=== PATIENT | male | born 1985 | race Caucasian/White ===

== ENCOUNTER 2019-06-24 11:25 | Inpatient (IN) | payer OTHER ==
[2019-06-24] MEDS ORDERED: Heparin Sodium 5,000 Units/ML Vial IV ONE (12:30)
[2019-06-24] MEDS: Lisinopril 5 MG Tab PO SCH (13:22)
--- NOTE | 2019-06-24 13:26 | PCM.HP.2 ---
H&P History of Present Illness - General Date of Service: 06/24/19 Admit Problem/Dx: Admission Diagnosis/Problem Admission Diagnosis/Problem Pulmonary embolism Source of Information: Patient History Limitations: Reports: No Limitations - History of Present Illness Initial Comments - Free Text/Narative: Mr. Dunham is a 34 yo male with PMH of DM, HTN, and known right lower extremity DVT who was seen in clinic today and did endorse 24 hours of dyspnea on exertion. He was diagnosed with the right leg DVT after presenting to clinic to establish care and also noting that he was having right leg pain and swelling. At that time, he was diagnosed with a DVT and was started on lovenox bridging to warfarin (after he made this choice upon review of the options to include a DOAC). He had been taking the warfarin consistently up until this past weekend when he missed 2-3 doses due to forgetting his medications while away from home ; however, he had not gone in for an INR check since about 1 month ago. Since missing these doses, he has again noticed increased pain and swelling in the right leg. He has also noticed dyspnea on exertion over the past 24 hours. He mainly has noticed this when going up stairs. He does not generally have shortness of breath but does note that he had this about 1 month ago when he was first diagnosed with the DVT as well. He has not had any cough or fever. He denies any chest pain. He has not done anything specifically to treat these symptoms. - Related Data Allergies/Adverse Reactions: Allergies Allergy/AdvReac Type Severity Reaction Status Date / Time No Known Allergies Allergy Verified 05/23/19 19:11 Home Medications: Home Meds Lisinopril [Zestril] 5 mg PO DAILY 06/24/19 [History] Warfarin [Coumadin] 5 mg PO DAILY 06/24/19 [History] atorvaSTATin [Lipitor] 10 mg PO BEDTIME 06/24/19 [History] glipiZIDE [Glucotrol] 5 mg PO BID 06/24/19 [History] metFORMIN [Glucophage XR] 500 mg PO BID 06/24/19 [History] Past Medical History - Past Health History Medical/Surgical History: Denies Medical/Surgical History Cardiovascular History: Reports: Hypertension Other Cardiovascular History: DVT Respiratory History: Reports: PE Endocrine/Metabolic History: Reports: Diabetes, Type II Social & Family History - Family History Endocrine/Metabolic: Reports: Diabetes, type II - Tobacco Use Smoking Status *Q: Never Smoker - Caffeine Use Caffeine Use: Reports: Coffee, Soda - Alcohol Use Alcohol Use History: No Alcohol Use in Last Twelve Months: Yes Alcohol Use Frequency: Rarely - Recreational Drug Use Recreational Drug Use: No - Living Situation & Occupation Living situation: Reports: , with Family Occupation: Employed (works at [employer]) H&P Review of Systems - Review of Systems: Review Of Systems: See Below General: Reports: No Symptoms HEENT: Reports: No Symptoms Pulmonary: Reports: No Symptoms Cardiovascular: Reports: Dyspnea on Exertion, Edema (right leg). Denies: Chest Pain Gastrointestinal: Reports: No Symptoms Genitourinary: Reports: No Symptoms Musculoskeletal: Reports: Leg Pain Skin: Reports: No Symptoms Psychiatric: Reports: No Symptoms Neurological: Reports: No Symptoms Exam - Exam Exam: See Below - Vital Signs Vital Signs: Last Vital Signs Temp 37.0 C 06/24/19 12:03 Pulse 102 H 06/24/19 12:03 Resp 16 06/24/19 12:03 BP 157/116 H 06/24/19 12:03 Pulse Ox 100 06/24/19 12:03 Weight: 106.141 kg - Exam General: Alert, Oriented, Cooperative HEENT: Conjunctiva Clear, Mucosa Moist & [place], Posterior Pharynx Clear, Pupils Equal, Pupils Reactive Neck: Supple, Trachea Midline Lungs: Clear to Auscultation, Normal Respiratory Effort Cardiovascular: Regular Rate, Regular Rhythm, Normal S1, Normal S2 GI/Abdominal Exam: Normal Bowel Sounds, Soft, Non-Tender, No Organomegaly, No Distention, No Mass Extremities: Normal Inspection, Normal Capillary Refill, Other (generalized edema of the right leg with tenderness over the medial thigh; no erythema or palpable cord) Peripheral Pulses: 2+: Radial (L), Radial (R) Skin: Warm, Dry, Intact - Patient Data Result Diagrams: 06/24/19 12:42 06/24/19 12:42 Sepsis Event Note - Evaluation Sepsis Screening Result: No Definite Risk - Focused Exam Vital Signs: Vital Signs Temp Pulse Resp BP Pulse Ox 06/24/19 12:03 37.0 C 102 H 16 157/116 H 100 Date Exam was Performed: 06/24/19 Time Exam was Performed: 13:55 - Problem List (1) Pulmonary emboli SNOMED Code(s): 22155021 ICD Code: I26.99 - OTHER PULMONARY EMBOLISM WITHOUT ACUTE COR PULMONALE Status: Acute Current Visit: Yes Qualifiers: Pulmonary embolism type: other Chronicity: acute Acute cor pulmonale presence: without acute cor pulmonale Qualified Code(s): I26.99 - Other pulmonary embolism without acute cor pulmonale (2) DVT (deep venous thrombosis) SNOMED Code(s): 341387685 ICD Code: I82.409 - ACUTE EMBOLISM AND THOMBOS UNSP DEEP VN UNSP LOWER EXTREMITY Status: Acute Current Visit: Yes Qualifiers: DVT location: lower extremity Affected thrombotic vein of extremity: unspecified vein of extremity Chronicity: acute Laterality: right Qualified Code(s): I82.401 - Acute embolism and thrombosis of unspecified deep veins of right lower extremity (3) Diabetes SNOMED Code(s): 99477140 ICD Code: E11.9 - TYPE 2 DIABETES MELLITUS WITHOUT COMPLICATIONS Status: Chronic Current Visit: Yes Qualifiers: Diabetes mellitus type: type 2 Diabetes mellitus intermediate teacher insulin use: without intermediate teacher use Diabetes mellitus complication status: without complication Qualified Code(s): E11.9 - Type 2 diabetes mellitus without complications (4) Hypertension SNOMED Code(s): 30848559 ICD Code: I10 - ESSENTIAL (PRIMARY) HYPERTENSION Status: Chronic Current Visit: Yes Qualifiers: Hypertension type: essential hypertension Qualified Code(s): I10 - Essential (primary) hypertension Problem List Initiated/Reviewed/Updated: Yes Orders Last 24hrs: Active Orders 24 hr Category Date Time Status Admission Status [Patient Status] [ADT] Routine ADT 06/24/19 11:27 Active Notify Provider Vital Signs [RC] ASDIRECTED Care 06/24/19 12:10 Ordered Oxygen Therapy [RC] PRN Care 06/24/19 12:09 Ordered Up to Chair [RC] ASDIRECTED Care 06/24/19 12:09 Ordered VTE/DVT Education [RC] PER UNIT ROUTINE Care 06/24/19 12:09 Ordered BASIC METABOLIC PANEL,BMP [CHEM] Routine Lab 06/24/19 12:09 Ordered CBC WITH AUTO DIFF [HEME] Routine Lab 06/24/19 12:09 Ordered PTT,PARTIAL THROMBOPLSTIN TIME [COAG] Q6H Lab 06/24/19 18:00 Ordered PTT,PARTIAL THROMBOPLSTIN TIME [COAG] Q6H Lab 06/25/19 00:00 Ordered PTT,PARTIAL THROMBOPLSTIN TIME [COAG] Q6 Lab 06/25/19 06:00 Ordered PTT,PARTIAL THROMBOPLSTIN TIME [COAG] Q6 Lab 06/25/19 12:00 Ordered PTT,PARTIAL THROMBOPLSTIN TIME [COAG] Q6 Lab 06/25/19 18:00 Ordered PTT,PARTIAL THROMBOPLSTIN TIME [COAG] Q6 Lab 06/26/19 00:00 Ordered PTT,PARTIAL THROMBOPLSTIN TIME [COAG] Q6 Lab 06/26/19 06:00 Ordered PTT,PARTIAL THROMBOPLSTIN TIME [COAG] Q6 Lab 06/26/19 12:00 Ordered PTT,PARTIAL THROMBOPLSTIN TIME [COAG] Q6 Lab 06/26/19 18:00 Ordered PTT,PARTIAL THROMBOPLSTIN TIME [COAG] Q6 Lab 06/27/19 00:00 Ordered PTT,PARTIAL THROMBOPLSTIN TIME [COAG] Q6 Lab 06/27/19 06:00 Ordered PTT,PARTIAL THROMBOPLSTIN TIME [COAG] Q6 Lab 06/27/19 12:00 Ordered PTT,PARTIAL THROMBOPLSTIN TIME [COAG] Routine Lab 06/24/19 12:09 Ordered Heparin Sodium Med 06/24/19 12:35 Active 0 units IVPUSH ASDIRECTED PRN Heparin Sodium/0.45% NaCl [Heparin 25,000 Units in 1/2 Med 06/24/19 12:15 Ordered NS 500 ML] 25,000 units in 500 ml IV TITRATE Warfarin [Coumadin] Med 06/24/19 20:00 Ordered 5 mg PO BEDTIME atorvaSTATin [Lipitor] Med 06/24/19 20:00 Ordered 10 mg PO BEDTIME glipiZIDE [Glucotrol] Med 06/24/19 20:00 Ordered 5 mg PO BID lisinopriL [Prinivil] Med 06/24/19 12:15 Ordered 5 mg PO DAILY Resuscitation Status Routine Resus Stat 06/24/19 12:09 Ordered Medication Orders Atorvastatin Calcium (Lipitor) 10 mg PO BEDTIME [facility] Glipizide (Glucotrol) 5 mg PO BID [facility] Heparin Sodium (Porcine) (Heparin Sodium) 0 units IVPUSH ASDIRECTED PRN PRN Reason: BASED ON PTT'S (SEE PROTOCOL) Heparin Sodium/Sodium Chloride (Heparin 25,000 Units In 1/2 Ns 500 Ml) 25,000 units in 500 mls @ 26 mls/hr IV TITRATE [facility]; Protocol Lisinopril (Prinivil) 5 mg PO DAILY [facility] Warfarin Sodium (Coumadin) 5 mg PO BEDTIME [facility] Assessment/Plan Comment:: 34 yo male admitted for anticoagulation related to a PE in the setting of a known DVT diagnosed 1 month ago as well as nonadherence to INR checks. #1 PE #2 DVT - Given patient's nonadherence to prior anticoagulation plan as well as the extensive nature of his PE, admission was recommended over outpatient treatment. He was in agreement. - Heparin drip ordered to be adjusted per nursing protocol. - Will also continue warfarin. - Recheck INR tomorrow. - aPTT q6 hours to assist with adjustment of the heparin drip. - Will recommend at least 48 hours of IV anticoagulation but ideally would await 2 therapeutic INR's prior to transitioning. - Will revisit options for anticoagulation. If he continues with warfarin, then the importance of regular follow-up will be re-emphasized. #3 DM, type II - Patient is on oral medications only. - Hold metformin while hospitalized. Continue glipizide. - Will bolus 500 cc normal saline in light of contrast administration this morning and intermediate teacher metformin use. - Glucose checks with am labs. #4 Hypertension - BP elevated in clinic and upon hospital arrival. - Will give 2nd dose of 5 mg lisinopril today and then increase daily dose to 10 mg daily. Patient is admitted to acute for at least 48 hours of IV heparin in light of concerns for adherence as well as burden of PE's as described above. Warfarin also continued. See plan otherwise as above. Patient is full code - discussed on admission. Does not need VTE prophylaxis given he is on therapeutic anticoagulation.
[2019-06-24 13:27] LABS: ANION GAP 15.9 mmol/L (10-20); CHLORIDE,CL 101 mmol/L (98-107); SODIUM,NA 139 mmol/L (136-145)
[2019-06-24] MEDS: Heparin Sodium/0.45% NaCl 25,000 UNITS/500 ML BAG IV SCH (13:45)
[2019-06-24] MEDS ORDERED: Sodium Chloride 0.9% 500 ML IV ONE (14:17)
[2019-06-24] MEDS: Heparin Sodium 5,000 Units/ML Vial IVPUSH PRN (18:48)
[2019-06-24] MEDS ORDERED: Acetaminophen 500 MG Tab PO ONE (20:30)
[2019-06-24] MEDS: atorvaSTATin 10 MG Tab PO SCH (20:54)
[2019-06-24] MEDS: Warfarin 5 MG Tab PO SCH (20:54)
[2019-06-24] MEDS: glipiZIDE 5 MG Tab PO SCH (20:54)
[2019-06-25] MEDS: Heparin Sodium 5,000 Units/ML Vial IVPUSH PRN ×2 (01:14→11:14)
[2019-06-25] MEDS: Heparin Sodium/0.45% NaCl 25,000 UNITS/500 ML BAG IV SCH ×2 (06:29→20:15)
[2019-06-25 07:00] LABS: CHLORIDE,CL 104 mmol/L (98-107); SODIUM,NA 140 mmol/L (136-145)
--- NOTE | 2019-06-25 08:52 | PCM.PN ---
- General Info Date of Service: 06/25/19 Subjective Update: 34 yo male hospital day #2 admitted with bilateral PE's after diagnosis of DVT 1 month ago followed by nonadherence to INR monitoring. Patient states he did well overnight. Did have a headache but this resolved with tylenol. He slept well. He is bored. He does have some right leg pain but this is unchanged from prior. No chest pain or shortness of breath but he has not really been doing much to get short of breath. He is eating well. ROS otherwise negative. - Review of Systems General: Reports: No Symptoms HEENT: Reports: No Symptoms Pulmonary: Reports: No Symptoms Cardiovascular: Reports: No Symptoms Gastrointestinal: Reports: No Symptoms Genitourinary: Reports: No Symptoms Musculoskeletal: Reports: Leg Pain Skin: Reports: No Symptoms Neurological: Reports: No Symptoms - Patient Data Vitals - Most Recent: Last Vital Signs Temp 36.6 C 06/25/19 06:00 Pulse 90 06/25/19 06:00 Resp 20 06/25/19 06:00 BP 158/109 H 06/25/19 06:00 Pulse Ox 98 06/25/19 06:00 Weight - Most Recent: 106.141 kg I&O - Last 24 Hours: Intake & Output 06/24/19 06/25/19 06/25/19 22:59 06:59 14:59 Intake Total 852 509 240 Balance 852 509 240 Lab Results Last 24 Hours: Laboratory Results - last 24 hr 06/24/19 06/24/19 06/24/19 Range/Units 12:42 12:42 12:42 WBC 7.4 (4.0-10.0) x10^3/uL RBC 5.17 (4.5-6.0) x10^6/uL Hgb 14.3 (14.0-18.0) g/dL Hct 40.4 (40.0-52.0) % MCV 78.1 (78.0-93.0) fL MCH 27.7 (26.0-32.0) pg MCHC 35.4 (32.0-36.0) g/dL RDW Coeff of [place] 13.7 (10.0-15.0) % Plt Count 120 L (130-400) x10^3/uL Neut % (Auto) 71.3 (50.0-80.0) % Lymph % (Auto) 19.7 L (25.0-50.0) % [place] % (Auto) 6.5 (2.0-11.0) % Eos % (Auto) 2.0 (0.0-4.0) % Baso % (Auto) 0.5 (0.2-1.2) % PT (10.0-12.8) SEC INR (2.0-3.5) APTT 24.1 (24.0-36.0) SEC Sodium 139 (136-145) mmol/L Potassium 3.9 (3.5-5.1) mmol/L Chloride 101 (98-107) mmol/L Carbon Dioxide 26 (21-32) mmol/L Anion Gap 15.9 (10-20) mmol/L BUN 12 (7-18) mg/dL Creatinine 1.1 (0.70-1.30) mg/dL Est Cr Clr Drug Dosing 111.05 mL/min Estimated GFR (MDRD) > 60 Glucose 209 H (74-106) mg/dL Calcium 8.5 (8.5-10.1) mg/dL 06/24/19 06/25/19 06/25/19 Range/Units 18:05 00:04 06:15 WBC (4.0-10.0) x10^3/uL RBC (4.5-6.0) x10^6/uL Hgb (14.0-18.0) g/dL Hct (40.0-52.0) % MCV (78.0-93.0) fL MCH (26.0-32.0) pg MCHC (32.0-36.0) g/dL RDW Coeff of [place] (10.0-15.0) % Plt Count (130-400) x10^3/uL Neut % (Auto) (50.0-80.0) % Lymph % (Auto) (25.0-50.0) % [place] % (Auto) (2.0-11.0) % Eos % (Auto) (0.0-4.0) % Baso % (Auto) (0.2-1.2) % PT (10.0-12.8) SEC INR (2.0-3.5) APTT 33.1 34.1 42.3 H (24.0-36.0) SEC Sodium (136-145) mmol/L Potassium (3.5-5.1) mmol/L Chloride (98-107) mmol/L Carbon Dioxide (21-32) mmol/L Anion Gap (10-20) mmol/L BUN (7-18) mg/dL Creatinine (0.70-1.30) mg/dL Est Cr Clr Drug Dosing mL/min Estimated GFR (MDRD) Glucose (74-106) mg/dL Calcium (8.5-10.1) mg/dL 06/25/19 06/25/19 06/25/19 Range/Units 06:15 06:15 06:15 WBC 5.6 (4.0-10.0) x10^3/uL RBC 5.02 (4.5-6.0) x10^6/uL Hgb 14.0 (14.0-18.0) g/dL Hct 38.9 L (40.0-52.0) % MCV 77.5 L (78.0-93.0) fL MCH 27.9 (26.0-32.0) pg MCHC 36.0 (32.0-36.0) g/dL RDW Coeff of [place] 13.4 (10.0-15.0) % Plt Count 108 L (130-400) x10^3/uL Neut % (Auto) 60.1 (50.0-80.0) % Lymph % (Auto) 28.4 (25.0-50.0) % [place] % (Auto) 7.6 (2.0-11.0) % Eos % (Auto) 3.2 (0.0-4.0) % Baso % (Auto) 0.7 (0.2-1.2) % PT 12.0 (10.0-12.8) SEC INR 1.1 L (2.0-3.5) APTT (24.0-36.0) SEC Sodium 140 (136-145) mmol/L Potassium 4.0 (3.5-5.1) mmol/L Chloride 104 (98-107) mmol/L Carbon Dioxide 26 (21-32) mmol/L Anion Gap 14.0 (10-20) mmol/L BUN 10 (7-18) mg/dL Creatinine 0.9 (0.70-1.30) mg/dL Est Cr Clr Drug Dosing 135.73 mL/min Estimated GFR (MDRD) > 60 Glucose 167 H (74-106) mg/dL Calcium 8.4 L (8.5-10.1) mg/dL Med Orders - Current: Current Medications Atorvastatin Calcium (Lipitor) 10 mg PO BEDTIME [facility] Last Admin: 06/24/19 20:54 Dose: 10 mg Glipizide (Glucotrol) 5 mg PO BID [facility] Last Admin: 06/24/19 20:54 Dose: 5 mg Heparin Sodium (Porcine) (Heparin Sodium) 0 units IVPUSH ASDIRECTED PRN PRN Reason: BASED ON PTT'S (SEE PROTOCOL) Last Admin: 06/25/19 01:14 Dose: 1,500 units Heparin Sodium/Sodium Chloride (Heparin 25,000 Units In 1/2 Ns 500 Ml) 25,000 units in 500 mls @ 26 mls/hr IV TITRATE SANDY; Protocol Last Admin: 06/25/19 06:29 Dose: 34.4 mls/hr, 34.4 mls/hr Lisinopril (Prinivil) 20 mg PO DAILY [facility] Warfarin Sodium (Coumadin) 5 mg PO BEDTIME [facility] Last Admin: 06/24/19 20:54 Dose: 5 mg Discontinued Medications Acetaminophen (Tylenol Extra Strength) 1,000 mg PO ONETIME ONE Stop: 06/24/19 20:31 Last Admin: 06/24/19 20:53 Dose: 1,000 mg Heparin Sodium (Porcine) (Heparin Sodium) 5,000 units IV ONETIME ONE Stop: 06/24/19 12:31 Last Admin: 06/24/19 13:39 Dose: 5,000 units Sodium Chloride (Normal Saline) 500 mls @ 500 mls/hr IV ONETIME ONE Stop: 06/24/19 15:16 Last Admin: 06/24/19 15:06 Dose: 500 mls/hr Lisinopril (Prinivil) 5 mg PO DAILY [facility] Last Admin: 06/24/19 13:22 Dose: 5 mg - Exam General: Alert, Oriented, Cooperative, No Acute Distress HEENT: Mucous Membr. Moist/[place] Neck: Supple, Trachea Midline, No Thyromegaly. No: Lymphadenopathy Lungs: Clear to Auscultation, Normal Respiratory Effort Cardiovascular: Regular Rate, Regular Rhythm, No Murmurs GI/Abdominal Exam: Normal Bowel Sounds, Soft, Non-Tender, No Organomegaly, No Distention, No Mass Extremities: Normal Inspection, Normal Range of Motion, Pedal Edema (nonpitting on the RLE) Peripheral Pulses: 2+: Radial (L), Radial (R) Skin: Warm, Dry, Intact Sepsis Event Note - Evaluation Sepsis Screening Result: No Definite Risk - Focused Exam Vital Signs: Vital Signs Temp Pulse Resp BP Pulse Ox 06/25/19 06:00 36.6 C 90 20 158/109 H 98 06/25/19 02:00 36.4 C 86 166/105 H 06/24/19 22:00 36.4 C 94 20 163/104 H 98 Date Exam was Performed: 06/25/19 Time Exam was Performed: 09:27 - Problem List & Annotations (1) Pulmonary emboli SNOMED Code(s): 60095622 Code(s): I26.99 - OTHER PULMONARY EMBOLISM WITHOUT ACUTE COR PULMONALE Status: Acute Current Visit: Yes Qualifiers: Pulmonary embolism type: other Chronicity: acute Acute cor pulmonale presence: without acute cor pulmonale Qualified Code(s): I26.99 - Other pulmonary embolism without acute cor pulmonale (2) DVT (deep venous thrombosis) SNOMED Code(s): 835391609 Code(s): I82.409 - ACUTE EMBOLISM AND THOMBOS UNSP DEEP VN UNSP LOWER EXTREMITY Status: Acute Current Visit: Yes Qualifiers: DVT location: lower extremity Affected thrombotic vein of extremity: unspecified vein of extremity Chronicity: acute Laterality: right Qualified Code(s): I82.401 - Acute embolism and thrombosis of unspecified deep veins of right lower extremity (3) Diabetes SNOMED Code(s): 85562048 Code(s): E11.9 - TYPE 2 DIABETES MELLITUS WITHOUT COMPLICATIONS Status: Chronic Current Visit: Yes Qualifiers: Diabetes mellitus type: type 2 Diabetes mellitus long term care social worker insulin use: without long term care social worker use Diabetes mellitus complication status: without complication Qualified Code(s): E11.9 - Type 2 diabetes mellitus without complications (4) Hypertension SNOMED Code(s): 79495370 Code(s): I10 - ESSENTIAL (PRIMARY) HYPERTENSION Status: Chronic Current Visit: Yes Qualifiers: Hypertension type: essential hypertension Qualified Code(s): I10 - Essential (primary) hypertension (5) Thrombocytopenia SNOMED Code(s): 924660618 Code(s): D69.6 - THROMBOCYTOPENIA, UNSPECIFIED Status: Chronic Current Visit: Yes - Problem List Review Problem List Initiated/Reviewed/Updated: Yes - My Orders Last 24 Hours: My Active Orders 06/24/19 11:27 Admission Status [Patient Status] [ADT] Routine 06/24/19 12:09 Oxygen Therapy [RC] .PRN Up to Chair [RC] ,20 VTE/DVT Education [RC] .PRN Resuscitation Status Routine 06/24/19 12:10 Notify Provider Vital Signs [RC] 02,06,10,14,18,22 06/24/19 12:15 Heparin Sodium/0.45% NaCl [Heparin 25,000 Units in 1/2 NS 500 ML] 25,000 units in 500 ml IV TITRATE 06/24/19 12:35 Heparin Sodium 0 units IVPUSH ASDIRECTED PRN 06/24/19 20:00 Warfarin [Coumadin] 5 mg PO BEDTIME atorvaSTATin [Lipitor] 10 mg PO BEDTIME glipiZIDE [Glucotrol] 5 mg PO BID 06/25/19 08:15 lisinopriL [Prinivil] 20 mg PO DAILY 06/25/19 12:00 PTT,PARTIAL THROMBOPLSTIN TIME [COAG] Q6H 06/25/19 18:00 PTT,PARTIAL THROMBOPLSTIN TIME [COAG] Q6H 06/25/19 Breakfast [employer] Diet [DIET] 06/26/19 00:00 PTT,PARTIAL THROMBOPLSTIN TIME [COAG] Q6H 06/26/19 05:11 BASIC METABOLIC PANEL,BMP [CHEM] Routine CBC WITH AUTO DIFF [HEME] Routine 06/26/19 06:00 PTT,PARTIAL THROMBOPLSTIN TIME [COAG] Q6H 06/26/19 12:00 PTT,PARTIAL THROMBOPLSTIN TIME [COAG] Q6H 06/26/19 18:00 PTT,PARTIAL THROMBOPLSTIN TIME [COAG] Q6H 06/27/19 00:00 PTT,PARTIAL THROMBOPLSTIN TIME [COAG] Q6H 06/27/19 06:00 PTT,PARTIAL THROMBOPLSTIN TIME [COAG] Q6H 06/27/19 12:00 PTT,PARTIAL THROMBOPLSTIN TIME [COAG] Q6H - Assessment Assessment:: 34 yo male admitted for anticoagulation related to newly diagnosed PE's in the setting of a previously diagnosed DVT. Asymptomatic at this time apart from right leg pain. Labs stable. - Plan Plan:: 34 yo male admitted for anticoagulation related to a PE in the setting of a known DVT diagnosed 1 month ago as well as nonadherence to INR checks. #1 PE #2 DVT - Given patient's nonadherence to prior anticoagulation plan as well as the extensive nature of his PE, admission was recommended over outpatient treatment. - Continue heparin infusion. - Will also continue warfarin. - INR remains subtherapeutic today, which is still likely a reflection of his missed doses. Therefore, will continue the same dosing until his INR is available tomorrow. - Will recommend at least 48 hours of IV anticoagulation but ideally would await 2 therapeutic INR's prior to transitioning. - Will revisit options for anticoagulation. If he continues with warfarin, then the importance of regular follow-up will be re-emphasized. - No hypercoagulable work-up indicated given he has not been adherent to the recommended regimen; therefore, this would not be considered a treatment failure. #3 DM, type II - Patient is on oral medications only. - Hold metformin while hospitalized. Continue glipizide. - Glucose checks with am labs. #4 Hypertension - BP has remained elevated. - Will increase lisinopril to 20 mg daily. #5 Thrombocytopenia - This is preexisting. - As long as remain >100,000, should be ok to continue heparin. - Will monitor daily. Patient is admitted to [facility] for at least 48 hours of IV heparin in light of concerns for adherence as well as burden of PE's as described above - anticipate d/c home tomorrow or Sunday. Warfarin also continued. See plan otherwise as above. Patient is full code - discussed on admission. Does not need VTE prophylaxis given he is on therapeutic anticoagulation.
[2019-06-25] MEDS: Lisinopril 20 MG Tab PO SCH (09:01)
[2019-06-25] MEDS: glipiZIDE 5 MG Tab PO SCH ×2 (09:01→19:34)
[2019-06-25] MEDS: Lisinopril 5 MG Tab PO SCH (09:02)
[2019-06-25] MEDS ORDERED: Acetaminophen 500 MG Tab PO PRN (09:34)
[2019-06-25] MEDS: atorvaSTATin 10 MG Tab PO SCH (19:34)
[2019-06-25] MEDS: Warfarin 5 MG Tab PO SCH (19:34)
[2019-06-26 07:16] LABS: CHLORIDE,CL 102 mmol/L (98-107); SODIUM,NA 140 mmol/L (136-145)
[2019-06-26 07:20] LABS: ANION GAP 15.1 mmol/L (10-20); PTT,PARTIAL THROMBOPLSTIN TIME 43.7 SEC (24.0-36.0)
[2019-06-26] MEDS: Lisinopril 20 MG Tab PO SCH (08:15)
[2019-06-26] MEDS: glipiZIDE 5 MG Tab PO SCH (08:16)
--- NOTE | 2019-06-26 09:05 | PCM.DCSUM1 ---
Discharge Summary - Hospital Course Brief History: Mr. Dunham is a 34 yo male admitted with bilateral PE's after noting increased shortness of breath on exertion for the preceding 24 hours and not having had regular INR monitoring since his diagnosis of DVT 1 month prior. - Discharge Data Discharge Date: 06/26/19 Discharge Disposition: Home, Self-Care 01 Condition: Good - Referral to Home Health Primary Care Physician: Joyce Muller MD - Discharge Diagnosis/Problem(s) (1) Pulmonary emboli SNOMED Code(s): 14501019 ICD Code: I26.99 - OTHER PULMONARY EMBOLISM WITHOUT ACUTE COR PULMONALE Status: Acute Current Visit: Yes Qualifiers: Pulmonary embolism type: other Chronicity: acute Acute cor pulmonale presence: without acute cor pulmonale Qualified Code(s): I26.99 - Other pulmonary embolism without acute cor pulmonale (2) DVT (deep venous thrombosis) SNOMED Code(s): 170181989 ICD Code: I82.409 - ACUTE EMBOLISM AND THOMBOS UNSP DEEP VN UNSP LOWER EXTREMITY Status: Acute Current Visit: Yes Qualifiers: DVT location: lower extremity Affected thrombotic vein of extremity: unspecified vein of extremity Chronicity: acute Laterality: right Qualified Code(s): I82.401 - Acute embolism and thrombosis of unspecified deep veins of right lower extremity (3) Diabetes SNOMED Code(s): 23146261 ICD Code: E11.9 - TYPE 2 DIABETES MELLITUS WITHOUT COMPLICATIONS Status: Chronic Current Visit: Yes Qualifiers: Diabetes mellitus type: type 2 Diabetes mellitus parts counterman insulin use: without custodial use Diabetes mellitus complication status: without complication Qualified Code(s): E11.9 - Type 2 diabetes mellitus without complications (4) Hypertension SNOMED Code(s): 59493983 ICD Code: I10 - ESSENTIAL (PRIMARY) HYPERTENSION Status: Chronic Current Visit: Yes Qualifiers: Hypertension type: essential hypertension Qualified Code(s): I10 - Essential (primary) hypertension (5) Thrombocytopenia SNOMED Code(s): 037441492 ICD Code: D69.6 - THROMBOCYTOPENIA, UNSPECIFIED Status: Chronic Current Visit: Yes - Patient Summary/Data Operative Procedure(s) Performed: none Complications: none Consults: none Labs Pending at D/C: none Recommended Follow-up Testing/Procedures: none Planned Operative Procedure(s) after DC: none Hospital Course: The patient was admitted and started on a heparin infusion. His INR was monitored daily and remained subtherapeutic despite being consistently on warfarin. Given lack of clinical decompensation over the 48 hours of IV anticoagulation, it was felt he was stable for discharge home on lovenox and warfarin. He is given strict instructions to comply with recommendations from the anticoagulation clinic and agrees to do so. His blood pressures were elevated during his hospitalization and his lisinopril dose was increased. His hospitalization was otherwise uncomplicated. - Discharge Plan Prescriptions/Med Rec: Enoxaparin [Lovenox] 100 mg SUBCUT Q12H #10 syringe lisinopriL [Prinivil] 20 mg PO DAILY #30 tablet Home Medications: Home Meds Lisinopril [Zestril] 5 mg PO DAILY 06/24/19 [History] Warfarin [Coumadin] 5 mg PO DAILY 06/24/19 [History] atorvaSTATin [Lipitor] 10 mg PO BEDTIME 06/24/19 [History] glipiZIDE [Glucotrol] 5 mg PO BID 06/24/19 [History] metFORMIN [Glucophage XR] 500 mg PO BIDMEALS 06/24/19 [History] Acetaminophen [Tylenol Extra Strength] 1,000 mg PO Q8H PRN tablet 06/26/19 [Rx] Enoxaparin [Lovenox] 100 mg SUBCUT Q12H #10 syringe 06/26/19 [Rx] lisinopriL [Prinivil] 20 mg PO DAILY #30 tablet 06/26/19 [Rx] Referrals: Joyce Muller MD [Primary Care Provider] - 07/15/19 10:00 am (You have a follow up appt. with Dr. Whitney Muller on July 15, 2019 at 10AM---[facility]) - Discharge Summary/Plan Comment DC Time >30 min.: No - General Info Date of Service: 06/26/19 Subjective Update: Patient is doing well today. Leg pain has improved. No chest pain or shortness of breath. ROS otherwise negative. - Review of Systems General: Reports: No Symptoms HEENT: Reports: No Symptoms Pulmonary: Reports: No Symptoms Cardiovascular: Reports: No Symptoms Gastrointestinal: Reports: No Symptoms Genitourinary: Reports: No Symptoms Musculoskeletal: Reports: No Symptoms Skin: Reports: No Symptoms Neurological: Reports: No Symptoms - Patient Data Vitals - Most Recent: Last Vital Signs Temp 35.7 C L 06/26/19 04:46 Pulse 93 06/26/19 04:46 Resp 18 06/26/19 04:46 BP 153/105 H 06/26/19 08:15 Pulse Ox 98 06/26/19 04:46 Weight - Most Recent: 106.141 kg I&O - Last 24 hours: Intake & Output 06/25/19 06/26/19 06/26/19 22:59 06:59 14:59 Intake Total 956 120 Balance 956 120 Lab Results - Last 24 hrs: Laboratory Results - last 24 hr 06/25/19 06/25/19 06/26/19 Range/Units 10:37 15:48 00:00 WBC (4.0-10.0) x10^3/uL RBC (4.5-6.0) x10^6/uL Hgb (14.0-18.0) g/dL Hct (40.0-52.0) % MCV (78.0-93.0) fL MCH (26.0-32.0) pg MCHC (32.0-36.0) g/dL RDW Coeff of [place] (10.0-15.0) % Plt Count (130-400) x10^3/uL Neut % (Auto) (50.0-80.0) % Lymph % (Auto) (25.0-50.0) % [place] % (Auto) (2.0-11.0) % Eos % (Auto) (0.0-4.0) % Baso % (Auto) (0.2-1.2) % PT (10.0-12.8) SEC INR (2.0-3.5) APTT 36.8 H 42.0 H 40.3 H (24.0-36.0) SEC Sodium (136-145) mmol/L Potassium (3.5-5.1) mmol/L Chloride (98-107) mmol/L Carbon Dioxide (21-32) mmol/L Anion Gap (10-20) mmol/L BUN (7-18) mg/dL Creatinine (0.70-1.30) mg/dL Est Cr Clr Drug Dosing mL/min Estimated GFR (MDRD) Glucose (74-106) mg/dL Calcium (8.5-10.1) mg/dL 06/26/19 06/26/19 06/26/19 Range/Units 06:42 06:42 06:42 WBC 6.1 (4.0-10.0) x10^3/uL RBC 5.28 (4.5-6.0) x10^6/uL Hgb 14.7 (14.0-18.0) g/dL Hct 41.1 (40.0-52.0) % MCV 77.8 L (78.0-93.0) fL MCH 27.8 (26.0-32.0) pg MCHC 35.8 (32.0-36.0) g/dL RDW Coeff of [place] 13.5 (10.0-15.0) % Plt Count 143 (130-400) x10^3/uL Neut % (Auto) 68.1 (50.0-80.0) % Lymph % (Auto) 22.1 L (25.0-50.0) % [place] % (Auto) 7.5 (2.0-11.0) % Eos % (Auto) 1.8 (0.0-4.0) % Baso % (Auto) 0.5 (0.2-1.2) % PT 12.1 (10.0-12.8) SEC INR 1.1 L (2.0-3.5) APTT 43.7 H (24.0-36.0) SEC Sodium 140 (136-145) mmol/L Potassium 4.1 (3.5-5.1) mmol/L Chloride 102 (98-107) mmol/L Carbon Dioxide 27 (21-32) mmol/L Anion Gap 15.1 (10-20) mmol/L BUN 9 (7-18) mg/dL Creatinine 1.0 (0.70-1.30) mg/dL Est Cr Clr Drug Dosing 122.16 mL/min Estimated GFR (MDRD) > 60 Glucose 166 H (74-106) mg/dL Calcium 8.7 (8.5-10.1) mg/dL Med Orders - Current: Current Medications Acetaminophen (Tylenol Extra Strength) 1,000 mg PO Q8H PRN PRN Reason: pain/headache Atorvastatin Calcium (Lipitor) 10 mg PO BEDTIME SANDY Last Admin: 06/25/19 19:34 Dose: 10 mg Glipizide (Glucotrol) 5 mg PO BID [facility] Last Admin: 06/26/19 08:16 Dose: 5 mg Heparin Sodium (Porcine) (Heparin Sodium) 0 units IVPUSH ASDIRECTED PRN PRN Reason: BASED ON PTT'S (SEE PROTOCOL) Last Admin: 06/25/19 11:14 Dose: 1,500 units Heparin Sodium/Sodium Chloride (Heparin 25,000 Units In 1/2 Ns 500 Ml) 25,000 units in 500 mls @ 26 mls/hr IV TITRATE SANDY; Protocol Last Admin: 06/25/19 20:15 Dose: 38.6 mls/hr, 38.6 mls/hr Lisinopril (Prinivil) 20 mg PO DAILY [facility] Last Admin: 06/26/19 08:15 Dose: 20 mg Warfarin Sodium (Coumadin) 5 mg PO BEDTIME [facility] Last Admin: 06/25/19 19:34 Dose: 5 mg Discontinued Medications Acetaminophen (Tylenol Extra Strength) 1,000 mg PO ONETIME ONE Stop: 06/24/19 20:31 Last Admin: 06/24/19 20:53 Dose: 1,000 mg Heparin Sodium (Porcine) (Heparin Sodium) 5,000 units IV ONETIME ONE Stop: 06/24/19 12:31 Last Admin: 06/24/19 13:39 Dose: 5,000 units Sodium Chloride (Normal Saline) 500 mls @ 500 mls/hr IV ONETIME ONE Stop: 06/24/19 15:16 Last Admin: 06/24/19 15:06 Dose: 500 mls/hr Lisinopril (Prinivil) 5 mg PO DAILY [facility] Last Admin: 06/25/19 09:02 Dose: Not Given - Exam General: Reports: Alert, Cooperative, No Acute Distress HEENT: Reports: Mucous Membr. Moist/[place] Neck: Reports: Supple, Trachea Midline, No Thyromegaly. Denies: Lymphadenopathy Lungs: Reports: Clear to Auscultation, Normal Respiratory Effort Cardiovascular: Reports: Regular Rate, Regular Rhythm, No Murmurs GI/Abdominal Exam: Normal Bowel Sounds, Soft, Non-Tender, No Organomegaly, No Mass Extremities: Non-Tender, Normal Capillary Refill Skin: Reports: Warm, Dry, Intact
[2019-06-26] MEDS ORDERED: Enoxaparin 100 MG/1 ML Syringe SUBCUT SCH (09:15)
== END 2019-06-26 10:00 | disposition home or self-care (01) | DRG 176 ==
LOC: VM.MS 11:27
PROVIDERS: ADMIT Family Medicine; ATTEND Family Medicine
DX: I26.99 Other pulmonary embolism without acute cor pulmonale (principal); I82.401 Acute embolism and thrombosis of unspecified deep veins of right lower extremity; E11.9 Type 2 diabetes mellitus without complications; I10 Essential (primary) hypertension; D69.6 Thrombocytopenia, unspecified; Z79.01 Long term (current) use of anticoagulants; Z79.84 Long term (current) use of oral hypoglycemic drugs; Z79.899 Other long term (current) drug therapy
CPT/HCPCS: 36415; 80048; 85025; 85610; 85730; A9270-GY; J1644; J1650; J7040

== ENCOUNTER 2021-09-12 15:40 | Inpatient (IN) | payer OTHER ==
[2021-09-12] MEDS ORDERED: Sodium Chloride 0.9% 10 ML Syringe FLUSH PRN (16:12)
[2021-09-12] MEDS ORDERED: VANCOmycin 1.5 GM/300 ML 1.5 GM in Premix Bag 1 BAG IV ONE (17:05)
[2021-09-12] MEDS ORDERED: Ampicillin/Sulbactam Na 3 GM Vial IVPUSH ONE (17:06)
[2021-09-12] MEDS ORDERED: Piperacillin/Tazobactam 3.375 GM in Sodium Chloride 0.9% 100 ML IV ONE (17:10)
[2021-09-12 17:24] LABS: PTT,PARTIAL THROMBOPLSTIN TIME 29.7 SEC (20.5-30.9)
[2021-09-12] MEDS ORDERED: Sodium Chloride 0.9% 1,000 ML IV SCH (18:00)
[2021-09-12] MEDS ORDERED: VANCOMYCIN SCH (18:45)
[2021-09-12] MEDS ORDERED: Polyethylene Glycol 3350 Powder 17 GM Packet PO PRN (18:50)
[2021-09-12] MEDS ORDERED: Magnesium Hydroxide 400 MG/5 ML Susp 30 ML Cup PO PRN (18:50)
[2021-09-12] MEDS ORDERED: Ondansetron 4 MG Tab.DIS PO PRN (18:50)
[2021-09-12] MEDS ORDERED: HYDROmorphone 0.5 MG/0.5 ML Syringe IVPUSH PRN (18:50)
[2021-09-12] MEDS: Sodium Chloride 0.9% 1,000 ML IV SCH (19:13)
[2021-09-12] MEDS ORDERED: Glucagon,Human Recombinant 1 MG Vial IM PRN (19:29)
[2021-09-12] MEDS ORDERED: 50% Dextrose in Water 50 ML Syringe IVPUSH PRN (19:29)
[2021-09-12] MEDS ORDERED: Acetaminophen 325 MG Tab PO PRN (19:30)
[2021-09-12] MEDS ORDERED: Warfarin 5 MG Tab PO SCH (20:00)
[2021-09-12] MEDS ORDERED: Enoxaparin 40 MG/0.4 ML Syringe SUBCUT SCH (20:15)
[2021-09-12] MEDS: atorvaSTATin 10 MG Tab PO SCH (20:26)
[2021-09-12] MEDS: Enoxaparin 40 MG/0.4 ML Syringe SUBCUT SCH (20:33)
[2021-09-12] MEDS: Piperacillin/Tazobactam 3.375 GM in Sodium Chloride 0.9% 100 ML IV SCH (22:00)
[2021-09-13] MEDS: Sodium Chloride 0.9% 1,000 ML IV SCH (02:21)
[2021-09-13] MEDS: Piperacillin/Tazobactam 3.375 GM in Sodium Chloride 0.9% 100 ML IV SCH ×3 (06:01→23:18)
[2021-09-13 07:17] LABS: CHLORIDE,CL 101 mmol/L (98-107); SODIUM,NA 136 mmol/L (136-145)
[2021-09-13 07:18] LABS: ANION GAP 15.8 mmol/L (5-15)
[2021-09-13 07:19] LABS: HEMOGLOBIN A1C 9.7 % (<5.7)
[2021-09-13] MEDS ORDERED: Iopamidol 755 Mg/ML 100 ML Bottle IVPUSH ONE (08:01)
[2021-09-13] MEDS ORDERED: atorvaSTATin 10 MG Tab PO SCH (09:00)
[2021-09-13] MEDS ORDERED: Non-Formulary Medication 1 Each (Lisinopril/Hydrochlorothiazide [Lisinopril-Hctz 20-12.5 M PO SCH (09:00)
[2021-09-13] MEDS: amLODIPine 10 MG Tab PO SCH (09:14)
[2021-09-13] MEDS: Insulin Regular, Human 100 Units/ML 3 ML Vial SUBCUT SCH ×3 (09:14→17:11)
[2021-09-13] MEDS: Hydrochlorothiazide 25 MG Tab PO SCH (09:14)
[2021-09-13] MEDS: Lisinopril 20 MG Tab PO SCH (09:14)
[2021-09-13] MEDS: VANCOmycin 1.5 GM/300 ML 1.5 GM in Premix Bag 1 BAG IV SCH ×2 (10:12→21:15)
[2021-09-13] MEDS: Enoxaparin 40 MG/0.4 ML Syringe SUBCUT SCH (20:03)
[2021-09-13] MEDS: atorvaSTATin 10 MG Tab PO SCH (20:04)
[2021-09-13] MEDS ORDERED: Warfarin 5 MG Tab PO SCH (21:00)
[2021-09-14] MEDS: Piperacillin/Tazobactam 3.375 GM in Sodium Chloride 0.9% 100 ML IV SCH (06:06)
[2021-09-14 07:21] LABS: CHLORIDE,CL 100 mmol/L (98-107); SODIUM,NA 136 mmol/L (136-145)
[2021-09-14 07:22] LABS: ANION GAP 12.9 mmol/L (5-15)
[2021-09-14] MEDS: Hydrochlorothiazide 25 MG Tab PO SCH (08:51)
[2021-09-14] MEDS: amLODIPine 10 MG Tab PO SCH (08:51)
[2021-09-14] MEDS: Lisinopril 20 MG Tab PO SCH (08:51)
[2021-09-14] MEDS: Insulin Regular, Human 100 Units/ML 3 ML Vial SUBCUT SCH (08:52)
[2021-09-14] MEDS: VANCOmycin 1.5 GM/300 ML 1.5 GM in Premix Bag 1 BAG IV SCH (10:03)
[2021-09-16] MEDS ORDERED: Warfarin 5 MG Tab PO SCH (21:00)
== END 2021-09-14 11:55 | disposition home or self-care (01) | DRG 638 ==
LOC: VM.ED 15:40 → VM.MS 17:31
PROVIDERS: ADMIT Nurse Practitioner Family; ATTEND Family Medicine
DX: E11.628 Type 2 diabetes mellitus with other skin complications (principal); L03.115 Cellulitis of right lower limb; E87.2 Acidosis; E11.621 Type 2 diabetes mellitus with foot ulcer; L97.519 Non-pressure chronic ulcer of other part of right foot with unspecified severity; E11.65 Type 2 diabetes mellitus with hyperglycemia; N17.9 Acute kidney failure, unspecified; R79.89 Other specified abnormal findings of blood chemistry; D69.6 Thrombocytopenia, unspecified; E11.69 Type 2 diabetes mellitus with other specified complication; E78.5 Hyperlipidemia, unspecified; I10 Essential (primary) hypertension; Z51.81 Encounter for therapeutic drug level monitoring; Z86.718 Personal history of other venous thrombosis and embolism; Z79.01 Long term (current) use of anticoagulants; Z86.711 Personal history of pulmonary embolism; Z86.16 Personal history of COVID-19
CPT/HCPCS: 36415; 71275; 73660-T5; 80048; 80053; 80061; 80202; 81003; 82947; 83036; 83605; 83735; 84100; 85025; 85610; 85652; 85730; 86140; 87040; 87070; 87077; 87186; 97116-GP; 97162-GP; 99284; A9270-GY; J1650; J1815-GY; J2543; J3370; J7030; J7050; Q9967

== ENCOUNTER 2022-04-04 16:48 | Emergency (ER) | payer OTHER | END 2022-04-04 17:55 | disposition home or self-care (01) | LOC: VM.ED 16:48 | DX: M25.572 Pain in left ankle and joints of left foot (principal); E11.9 Type 2 diabetes mellitus without complications; I10 Essential (primary) hypertension; Z86.718 Personal history of other venous thrombosis and embolism; Z79.84 Long term (current) use of oral hypoglycemic drugs; Z88.5 Allergy status to narcotic agent | CPT/HCPCS: 73610-LT; 99283 ==

== ENCOUNTER 2022-10-19 18:25 | Emergency (ER) | payer OTHER ==
[2022-10-19 19:06] LABS: BASOPHILS PERCENT AUTO 0.7 % (0.2-1.2); EOSINOPHILS ABSOLUTE AUTO 0.2 x10^3/uL (0.0-0.5); EOSINOPHILS PERCENT AUTO 3.8 % (0.0-4.0); HEMATOCRIT 41.3 % (40.0-52.0); HEMOGLOBIN 14.6 g/dL (14.0-18.0); IMMATURE GRAN ABSOLUTE AUTO 0.01 x10^3/uL (0.00-0.07); LYMPHOCYTES ABSOLUTE AUTO 1.7 x10^3/uL (1.0-4.8); LYMPHOCYTES PERCENT AUTO 39.1 % (25.0-50.0); MEAN CORPUSCULAR HEMOGLOBIN 27.8 pg (26.0-32.0); MEAN CORPUSCULAR HGB CONC 35.4 g/dL (32.0-36.0); MEAN CORPUSCULAR VOLUME 78.7 fL (78.0-93.0); MONOCYTES ABSOLUTE AUTO 0.4 x10^3/uL (0.0-0.8); MONOCYTES PERCENT AUTO 8.8 % (2.0-11.0); NEUTROPHILS PERCENT AUTO 47.4 % (50.0-80.0); PLATELET COUNT,PLT 160 x10^3/uL (130-400); RED BLOOD CELL COUNT 5.25 x10^6/uL (4.5-6.0); WHITE BLOOD CELL COUNT,WBC 4.2 x10^3/uL (4.0-10.0)
[2022-10-19 19:21] LABS: A/G RATIO 1.26; ALANINE AMINOTRANSFERASE,ALT 70 U/L (16-63); ALBUMIN 3.9 g/dL (3.4-5.0); ALKALINE PHOSPHATASE 51 U/L (46-116); ANION GAP 12.8 mmol/L (5-15); ASPARTATE AMNIOTRANSFERASE,AST 33 U/L (15-37); BILIRUBIN TOTAL 0.7 mg/dL (0.2-1.0); BLOOD UREA NITROGEN,BUN 14 mg/dL (7-18); C-REACTIVE PROTEIN 0.36 mg/dL (<=0.30); CALCIUM 8.3 mg/dL (8.5-10.1); CARBON DIOXIDE,CO2 29 mmol/L (21-32); CHLORIDE,CL 101 mmol/L (98-107); CREATININE 1.1 mg/dL (0.70-1.30); ESTIMATED GFR 89 mL/min (>=60); GLUCOSE RANDOM 273 mg/dL (70-99); LIPASE 54 U/L (19-71); POTASSIUM,K 3.8 mmol/L (3.5-5.1); SODIUM,NA 139 mmol/L (136-145)
[2022-10-19] MEDS ORDERED: Iopamidol 612 MG/ML 100 ML Bottle IVPUSH ONE (19:25)
[2022-10-19 20:01] LABS: APPEARANCE,URINE CLEAR (CLEAR); BILIRUBIN,URINE NEGATIVE (NEGATIVE); COLOR,URINE YELLOW (YELLOW); GLUCOSE,URINE 500 mg/dL (NEGATIVE); KETONES,URINE NEGATIVE (NEGATIVE); LEUKOCYTE ESTERASE,URINE NEGATIVE (NEGATIVE); NITRITE,URINE NEGATIVE (NEGATIVE); OCCULT BLOOD,URINE NEGATIVE (NEGATIVE); PH,URINE 6.5 (5.0-8.0); PROTEIN,URINE TRACE mg/dL (NEGATIVE); UROBILINOGEN,URINE 0.2 EU/dL (0.2)
[2022-10-19 20:03] LABS: BACTERIA,URINE RARE /HPF (NOT SEEN); MUCUS,URINE OCCASIONAL /LPF (NOT SEEN); RBC,URINE 0-5 /HPF (NOT SEEN); SQUAMOUS EPITHELIAL CELLS,UR NOT SEEN /HPF (NOT SEEN); WBC,URINE NOT SEEN /HPF (NOT SEEN)
== END 2022-10-19 20:55 | disposition home or self-care (01) ==
LOC: VM.ED 18:25
DX: K40.90 Unilateral inguinal hernia, without obstruction or gangrene, not specified as recurrent (principal); I10 Essential (primary) hypertension; E11.9 Type 2 diabetes mellitus without complications; Z79.84 Long term (current) use of oral hypoglycemic drugs; Z79.899 Other long term (current) drug therapy; Z88.5 Allergy status to narcotic agent
CPT/HCPCS: 36415; 74177; 80053; 81001; 83690; 85025; 86140; 99284; Q9967

== ENCOUNTER 2023-12-16 15:35 | Emergency (ER) | payer OTHER, BC | END 2023-12-16 16:13 | disposition home or self-care (01) | LOC: VM.ED 15:35 | DX: E11.621 Type 2 diabetes mellitus with foot ulcer (principal); I10 Essential (primary) hypertension; Z88.8 Allergy status to other drugs, medicaments and biological substances; Z79.84 Long term (current) use of oral hypoglycemic drugs; Z79.01 Long term (current) use of anticoagulants; Z79.899 Other long term (current) drug therapy | CPT/HCPCS: 99283 ==